=== PATIENT | male | born 1965 | race Caucasian/White ===

== ENCOUNTER 2017-04-25 05:30 | Inpatient (IN) | payer OTHER ==
[~2017-04-25] VITALS: Ht 170.2 cm; Wt 103.1 kg
[~2017-04-25 05:30] MED LIST: HYDROCODON-ACE1 EAC7 PO; IRON325 M1 PO; MELOXICAM15 MG PO; MEN'S ONE DAIL1 EACH PO; VITAMIN B-12500 MC3 PO
[2017-04-25 05:56] VITALS: BP 123/80
[2017-04-25 10:28] VITALS: BP 116/75
[2017-04-25 15:42] VITALS: BP 125/77
[2017-04-26 00:13] VITALS: BP 105/62
[2017-04-26 07:00] VITALS: BP 104/67
[2017-04-26 09:00] LABS: EOSINOPHIL (%) 0.7 % (0-5); EOSINOPHIL COUNT 0.1 K/uL (0-0.3); HEMATOCRIT 35.6 % (38.0-50.0); IMMATURE GRANULOCYTE (%) 0.5 % (0.0-0.7); INSTRUMENT ABS NEUTROPHIL CT 6.4 K/uL; LYMPHOCYTE COUNT 1.5 K/uL (1.0-2.8); MCH 30.7 PG (29.0-34.0); MCHC 33.4 G/DL (30.0-36.0); MEAN PLAT.VOLUME 11.2 uM^3 (9.0-12.4); MONOCYTE (%) 7.3 % (3-12); MONOCYTE COUNT 0.6 K/uL (0-0.8); NEUTROPHIL (%) 73.9 % (45-76); NEUTROPHIL COUNT 6.4 K/uL (1.8-6.4); PLATELET COUNT 154 K/uL (156-360); RBC DIS.WIDTH-CV 12.9 % (11.8-14.6); RED BLOOD COUNT 3.87 M/uL (4.00-5.50); WHITE BLOOD COUNT 8.7 K/uL (4.1-10.2)
[2017-04-26 09:26] LABS: ANION GAP 8 MEQ/L (2-14); CHLORIDE 108 MEQ/L (99-109); GFR ESTIMATE (CALCULATED) > 59 mL/min/; GLUCOSE 134 mg/dL (70-99); POTASSIUM 4.2 MEQ/L (3.7-5.4); SAMPLE HEMOLYSIS CHECK 0; SAMPLE ICTERIC CHECK 0; SAMPLE LIPEMIA CHECK 0; SODIUM 141 MEQ/L (136-147); UREA NITROGEN (BUN) 11 mg/dL (9-23)
[2017-04-26 17:40] VITALS: BP 122/89
[2017-04-27 00:17] VITALS: BP 106/59
[2017-04-27 07:53] VITALS: BP 111/68
[2017-04-27 16:46] VITALS: BP 122/75
[2017-04-27 23:37] VITALS: BP 133/85
[2017-04-28 07:27] VITALS: BP 132/77
[2017-04-28] MEDS ORDERED: HYDROCODON-ACE1 EAC7 PO (10:34)
[2017-04-28] MEDS ORDERED: OXYCONTIN10 MG PO (10:34)
[2017-04-28] MEDS ORDERED: ELIQUIS2.5 MG PO (10:34)
[2017-04-28] MEDS ORDERED: BISAC-EVAC10 MG PR (10:34)
[2017-05-02 14:02] LABS: ANTITHROMBIN III ACTIVITY+ 71 % activi (80-120); DRVVT Mixing Study Interp Not Indicated (()); PROTEIN C FUNCTIONAL ACTIVITY+ 156 % (70-180); PTT-LA 48 sec (<=40); PTT-LA Reflex Has been added (()); Protein S, Free 113 % normal (57-171); Thrombosis Consult Level Limited (()); dRVVT Screen 45 sec (<=45)
== END 2017-04-28 15:27 | disposition home or self-care (01) | DRG 470 ==
LOC: 2SOUTH 05:30 → 3EAST 05:30 → 2SOUTH 12:02 → 3EAST 04-28 15:27
PROVIDERS: Internal Medicine; Physician Assistant
PROC: 0SRD0J9 Replacement of Left Knee Joint with Synthetic Substitute, Cemented, Open Approach (ICD-10-PCS; principal; 2017-04-25)
DX: M17.12 Unilateral primary osteoarthritis, left knee (principal); I82.442 Acute embolism and thrombosis of left tibial vein; E66.01 Morbid (severe) obesity due to excess calories; Z68.35 Body mass index [BMI] 35.0-35.9, adult; M71.20 Synovial cyst of popliteal space [Baker], unspecified knee; M25.562 Pain in left knee
CPT/HCPCS: 80048; 81240 90; 83090 90; 85025; 85240 90; 85300 90; 85303 90; 85305 90; 85306 90; 85307 90; 85613 90; 85730 90; 86146 90; 86147 90; 93971; 97530 GO; C1713; J0131; J0690; J1885; J2250; J7050; J7120; L1820; S0020